=== PATIENT | female | born 1995 | race African-American/Black ===

== ENCOUNTER 2024-11-10 15:01 | Emergency (ER) | payer MEDICAID ==
[~2024-11-10] VITALS: Ht 167.6 cm; Wt 60.0 kg
[2024-11-10 15:04] VITALS: O2SAT 98
[2024-11-10] MEDS: KETOROLAC 30MG/ML VIAL IM ONE (18:14)
[2024-11-10] MEDS: BACITRACIN ZINC OINT UDPKT TOP ONE (18:14)
[2024-11-10] MEDS ORDERED: KETO10TA2 MT (19:12)
[2024-11-10] MEDS ORDERED: BO1 TP (19:12)
[2024-11-10 19:24] VITALS: BP 126/72; PULSE 82; RESP 16; TEMP 36.8; O2SAT 100
== END 2024-11-10 19:27 | disposition home or self-care (01) ==
LOC: ER 15:01
DX: S70.311A Abrasion, right thigh, initial encounter (principal); S70.312A Abrasion, left thigh, initial encounter; Z79.899 Other long term (current) drug therapy; W01.0XXA Fall on same level from slipping, tripping and stumbling without subsequent striking against object, initial encounter; Y93.89 Activity, other specified; Y92.89 Other specified places as the place of occurrence of the external cause; Y99.8 Other external cause status
CPT/HCPCS: 99283; 96372; J1885; A4606